=== PATIENT | male | born 1990 | race African-American/Black ===

== ENCOUNTER 2019-05-22 14:44 | Emergency (ER) | payer MEDICAID, OTHER ==
[~2019-05-22] VITALS: Ht 170.2 cm; Wt 79.4 kg
[2019-05-22 17:39] VITALS: BP 110/75
== END 2019-05-22 17:42 | disposition home or self-care (01) ==
LOC: ER 14:50
DX: S43.422A Sprain of left rotator cuff capsule, initial encounter (principal); X58.XXXA Exposure to other specified factors, initial encounter; Y93.89 Activity, other specified; Y99.8 Other external cause status; Y92.89 Other specified places as the place of occurrence of the external cause
CPT/HCPCS: 72040; 73030